=== PATIENT | male | born 1990 | race Caucasian/White ===

== ENCOUNTER 2025-03-17 10:41 | Emergency (ER) | payer MEDICAID ==
[~2025-03-17] VITALS: Ht 190.5 cm; Wt 72.7 kg
[2025-03-17 10:46] VITALS: TEMP 97.9
[2025-03-17 10:53] VITALS: BP 128/87; PULSE 84; RESP 16; O2SAT 99
[2025-03-17] MEDS: ACETAMINOPHEN 500 MG TABLET PO ONE (11:03)
[2025-03-17] MEDS: IBUPROFEN 600 MG TABLET PO ONE (11:03)
[2025-03-17] MEDS ORDERED: ACET-3385 PO (11:19)
[2025-03-17] MEDS ORDERED: IBUP-1492 PO (11:19)
== END 2025-03-17 11:45 | disposition home or self-care (01) ==
LOC: EMS 10:41
DX: S62.307A Unspecified fracture of fifth metacarpal bone, left hand, initial encounter for closed fracture (principal); F12.90 Cannabis use, unspecified, uncomplicated; Z98.890 Other specified postprocedural states; X58.XXXA Exposure to other specified factors, initial encounter; Y93.89 Activity, other specified; Y92.89 Other specified places as the place of occurrence of the external cause; Y99.8 Other external cause status
CPT/HCPCS: 99283